=== PATIENT | female | born 1945 | race Caucasian/White ===

== ENCOUNTER 2023-12-31 08:15 | Day surgery (SDC) | payer MEDICARE ==
[2023-12-31] MEDS: Sodium Chloride 0.9% 10 ML Syringe FLUSH PRN (09:07)
== END 2023-12-31 09:45 | disposition home or self-care (01) ==
LOC: JP.SDS 08:15
PROVIDERS: ATTEND Ophthalmology
DX: H25.11 Age-related nuclear cataract, right eye (principal); F17.200 Nicotine dependence, unspecified, uncomplicated; Z79.82 Long term (current) use of aspirin; Z88.0 Allergy status to penicillin
CPT/HCPCS: J3490; V2632